=== PATIENT | male | born 1990 | race Two or more races ===

== ENCOUNTER 2018-08-31 14:53 | Emergency (ER) | payer SELFPAY ==
[~2018-08-31] VITALS: Ht 193 cm; Wt 84.0 kg
[2018-08-31 19:11] VITALS: BP 112/77
== END 2018-08-31 19:21 | disposition home or self-care (01) ==
LOC: ER 14:53
DX: M62.830 Muscle spasm of back (principal); M54.5 Low back pain; F17.290 Nicotine dependence, other tobacco product, uncomplicated; Z87.828 Personal history of other (healed) physical injury and trauma
CPT/HCPCS: 99283

== ENCOUNTER 2018-09-09 12:11 | Emergency (ER) | payer SELFPAY ==
[~2018-09-09] VITALS: Ht 193 cm; Wt 83.6 kg
[2018-09-09 12:19] VITALS: BP 125/74
[2018-09-09] MEDS ORDERED: ACETAMINOPHEN 325MG TABLET PO ONE (13:00)
== END 2018-09-09 13:32 | disposition home or self-care (01) ==
LOC: ER 12:20
DX: G44.209 Tension-type headache, unspecified, not intractable (principal)
CPT/HCPCS: 99284